=== PATIENT | female | born 1995 | race Caucasian/White ===

== ENCOUNTER 2019-05-31 05:35 | Inpatient (IN) | payer OTHER ==
[2019-05-31] MEDS ORDERED: CARBOPROST 250 MCG INJ IM ×2 (06:30→15:30)
[2019-05-31] MEDS ORDERED: BUTORPHANOL 2 MG INJ IV (06:30)
[2019-05-31] MEDS ORDERED: METHYLERGONOVINE 0.2 MG INJ IM (06:30)
[2019-05-31] MEDS ORDERED: LIDOCAINE 1% (MPF) 30 ML INJ INJ (06:30)
[2019-05-31] MEDS ORDERED: MISOPROSTOL 200 MCG TAB PR ×2 (06:30→15:30)
[2019-05-31] MEDS ORDERED: OXYTOCIN 30 UNITS/LR 500 ML IV ×3 (06:30→15:30)
[2019-05-31] MEDS: LACTATED RINGER'S 1,000 ML IV ×4 (06:46→10:48)
[2019-05-31] MEDS: AMPICILLIN 2 GM/NS (PMX) 100 ML IV (06:55)
[2019-05-31 07:12] LABS: ADD MAN DIFF? NO
[2019-05-31 07:20] LABS: WHITE BLOOD COUNT 5.7 10^3/ul (4.8-10.8)
[2019-05-31 07:20] LABS: BASOPHILS % 0.2 % (0.0-2.0); EOSINOPHILS # 0.1 10^3/ul (0.0-0.5); EOSINOPHILS % 1.2 % (0.0-7.0); HEMATOCRIT 36.6 % (37.0-47.0); HEMOGLOBIN 11.8 g/dl (12.0-16.0); LYMPHOCYTES # 1.8 10^3/ul (0.8-2.9); LYMPHOCYTES % 30.5 % (15.0-51.0); MEAN CORPUSCULAR HEMOGLOBIN 29.9 pg (29.0-33.0); MEAN CORPUSCULAR HGB CONC 32.2 g/dl (32.0-37.0); MEAN CORPUSCULAR VOLUME 92.7 fl (82.0-101.0); MEAN PLATELET VOLUME 11.3 fl (7.4-10.4); MONOCYTE # 0.4 10^3/ul (0.3-0.9); NEUTROPHIL # 3.5 10^3/ul (1.6-7.5); NEUTROPHILS % 60.6 % (39.0-77.0); PLATELET COUNT 190 10^3/UL (140-415); RED BLOOD COUNT 3.95 10^6/ul (4.20-5.40); RED CELL DISTRIBUTION WIDTH 14.2 % (11.5-14.5)
[2019-05-31 07:38] LABS: INR 0.91; PROTIME 12.4 Sec (11.9-14.9)
[2019-05-31 07:39] LABS: PARTIAL THROMBOPLASTIN TIME 26.9 Sec (23.0-35.0)
[2019-05-31] MEDS ORDERED: DIPHENHYDRAMINE 50 MG INJ IV ×2 (08:00→15:30)
[2019-05-31] MEDS ORDERED: KETOROLAC 30 MG INJ IV (08:00)
[2019-05-31] MEDS ORDERED: FENTAnyl 2MCG/ML-ROPIV 0.2% 100 ML BAG EPI (08:00)
[2019-05-31] MEDS ORDERED: HYDROmorphONE 0.5 MG/0.5 ML SYG IV ×2 (08:00)
[2019-05-31] MEDS ORDERED: ONDANSETRON 4 MG INJ IV ×2 (08:00→15:30)
[2019-05-31] MEDS ORDERED: NALOXONE (0.4 MG/ML) INJ IV (08:00)
[2019-05-31 08:12] LABS: HEPATITIS B SURFACE ANTIGEN NEGATIVE (NEGATIVE)
[2019-05-31] MEDS: AMPICILLIN 1 GM/NS (PMX) 50 ML IV (14:36)
[2019-05-31 15:03] LABS: RAPID PLASMA REAGIN NONREACTIVE (NR)
[2019-05-31] MEDS: LACTATED RINGER'S 1,000 ML IV* (15:06)
[2019-05-31] MEDS ORDERED: SENNA/DOCUSATE NA (8.6MG/50MG) TAB PO (15:30)
[2019-05-31] MEDS ORDERED: DIBUCAINE 1% 30 GM OINT TOP (15:30)
[2019-05-31] MEDS ORDERED: ONDANSETRON 4 MG TAB PO (15:30)
[2019-05-31] MEDS ORDERED: DIPHENHYDRAMINE 25 MG CAP PO (15:30)
[2019-05-31] MEDS ORDERED: MAGNESIUM HYDROXIDE 30ML CUP PO (15:30)
[2019-05-31] MEDS ORDERED: HYDROCODONE/APAP (5/325) TAB PO ×2 (15:30)
[2019-05-31] MEDS ORDERED: NA PHOSPHATE/BIPHOS 133 ML ENEMA PR (15:30)
[2019-05-31] MEDS: IBUPROFEN 600 MG TAB PO ×2 (17:29→23:25)
[2019-05-31] MEDS: OXYTOCIN 30 UNITS/LR 500 ML IV (19:17)
[2019-05-31] MEDS: SENNA/DOCUSATE NA (8.6MG/50MG) TAB PO (21:18)
[2019-05-31] MEDS: LANOLIN HPA 1 PKT TOP (23:33)
[2019-05-31] MEDS: WITCH HAZEL/GLYCERIN PAD PR (23:33)
[2019-05-31] MEDS: BENZOCAINE 20% 56 ML SPRAY TOP (23:33)
[2019-06-01] MEDS: LACTATED RINGER'S 1,000 ML IV* ×2 (01:20→07:06)
[2019-06-01] MEDS: IBUPROFEN 600 MG TAB PO ×2 (05:49→12:01)
[2019-06-01 07:26] LABS: ADD MAN DIFF? NO
[2019-06-01 07:33] LABS: WHITE BLOOD COUNT 8.1 10^3/ul (4.8-10.8)
[2019-06-01 07:33] LABS: BASOPHILS % 0.2 % (0.0-2.0); EOSINOPHILS # 0.1 10^3/ul (0.0-0.5); EOSINOPHILS % 0.6 % (0.0-7.0); HEMATOCRIT 35.7 % (37.0-47.0); HEMOGLOBIN 11.6 g/dl (12.0-16.0); LYMPHOCYTES # 1.6 10^3/ul (0.8-2.9); LYMPHOCYTES % 19.8 % (15.0-51.0); MEAN CORPUSCULAR HEMOGLOBIN 29.6 pg (29.0-33.0); MEAN CORPUSCULAR HGB CONC 32.5 g/dl (32.0-37.0); MEAN CORPUSCULAR VOLUME 91.1 fl (82.0-101.0); MONOCYTE # 0.4 10^3/ul (0.3-0.9); MONOCYTES % 5.5 % (0.0-11.0); NEUTROPHIL # 5.9 10^3/ul (1.6-7.5); NEUTROPHILS % 73.3 % (39.0-77.0); PLATELET COUNT 178 10^3/UL (140-415); RED BLOOD COUNT 3.92 10^6/ul (4.20-5.40); RED CELL DISTRIBUTION WIDTH 14.2 % (11.5-14.5)
[2019-06-01] MEDS: SENNA/DOCUSATE NA (8.6MG/50MG) TAB PO (09:03)
[2019-06-01] MEDS: ACETAMINOPHEN 500 MG TAB PO (10:04)
[2019-06-01] MEDS ORDERED: IBUPROFEN 600 MG TAB PO (12:00)
[2019-06-01] MEDS: BENZOCAINE 20% 56 ML SPRAY TOP (16:32)
[2019-06-01] MEDS: WITCH HAZEL/GLYCERIN PAD PR (16:32)
[2019-06-02] MEDS ORDERED: MEASLES,MUMPS,RUBELLA VACCINE INJ SC* (09:00)
[2019-06-02] MEDS ORDERED: DIPHTH/TET/ACEL PERTUSS (ADULT) 0.5 ML VIAL IM* (09:00)
[2019-06-02] MEDS ORDERED: VARICELLA VACCINE LIVE/PF 1,350 UNIT/0.5 ML ML SC* (09:00)
== END 2019-06-01 17:20 | disposition home or self-care (01) | DRG 807 ==
LOC: OBT 05:35 → L-D 06:10 → OBT 06:12 → L-D 06:12 → PP1 16:46
PROVIDERS: Specialist
PROC: 10E0XZZ Delivery of Products of Conception, External Approach (ICD-10-PCS; principal; 2019-05-31)
DX: O99.824 Streptococcus B carrier state complicating childbirth (principal); O75.89 Other specified complications of labor and delivery; N63.0 Unspecified lump in unspecified breast; Z37.0 Single live birth; Z3A.40 40 weeks gestation of pregnancy
CPT/HCPCS: 62322; 85025; 85610; 85730; 86592; 86850; 86900; 86901; 87340